=== PATIENT | male | born 1940 | race Caucasian/White ===

== ENCOUNTER → 2023-09-19 15:30 | Outpatient (REF) | payer OTHER, SELFPAY | LOC: HWRAD 15:30 | PROVIDERS: ATTENDING PHYSICIAN Surgery; FAMILY PHYSICIAN Internal Medicine | DX: N50.89 Other specified disorders of the male genital organs (principal) | CPT/HCPCS: 76870; 93976 ==

== ENCOUNTER → 2023-11-23 08:17 | Outpatient (REF) | payer OTHER, SELFPAY ==
[2023-11-23 09:39] LABS: ALT (SGPT) 16 U/L (0-50); AST (SGOT) 28 U/L (17-59); Albumin 4.2 g/dl (3.5-5.0); Alkaline Phosphatase 52 U/L (38-126); Blood Urea Nitrogen 12 mg/dl (9-20); Calcium 9.4 mg/dl (8.4-10.2); Carbon Dioxide 25 mmol/L (22-30); Chloride 105 mmol/L (98-107); Glucose 94 mg/dl (70-99); HDL Cholesterol 77 mg/dl; LDL Cholesterol, Calculated 94 mg/dl; Potassium 4.4 mmol/L (3.5-5.1); Sodium 139 mmol/L (135-145); Total Cholesterol 201 mg/dl (50-199); Total Protein 6.8 g/dl (6.3-8.2); Triglyceride 154 mg/dl (10-149); Very Low Density Lipoprotein 30 mg/dl (0-30); eGFR > 60.00
[2023-11-23 09:45] LABS: % Basophils 0.9 % (0-2); % Eosinophils 5.2 % (0-6); % Immature Granulocytes 0.3 % (0-0.5); % Lymphocytes 35.5 % (20.5-51.1); % Monocytes 7.3 % (1.7-9.3); % Neutrophils 50.8 % (42.2-75.2); Absolute Eosinophils 0.2 10^3/uL (0-0.7); Absolute Lymphocytes 1.2 10^3/uL (1.2-3.4); Absolute Monocytes 0.2 10^3/uL (0.1-0.6); Absolute Neutrophils 1.7 10^3/uL (1.4-6.5); Hematocrit 41.8 % (39.0-52.0); Hemoglobin 13.7 g/dL (13.0-18.0); Mean Corp Hgb Conc. 32.8 g/dL (33.0-37.0); Mean Corpuscular Hgb 30.2 pg (27.0-31.0); Mean Corpuscular Volume 92.1 fL (80.0-94.0); Mean Platelet Volume 10.4 fL (7.4-10.4); Nucleated Red Blood Cells % 0 % (-); Platelet Count 142 10^3/uL (130-400); Red Blood Cell Count 4.54 10^6/uL (4.70-6.10); Red Cell Dist. Width 13.3 % (11.5-14.5); White Blood Cell Count 3.3 10^3/uL (4.8-10.8)
[2023-11-24 21:46] LABS: PSA Total 0.9 ng/mL (0.0-4.0)
[2023-11-25 16:25] LABS: Lyme Antibody Screen, EIA Negative (Negative)
== END ==
LOC: REG 08:17
PROVIDERS: ATTENDING PHYSICIAN Nurse Practitioner; FAMILY PHYSICIAN Internal Medicine
DX: R53.83 Other fatigue (principal); Z00.00 Encounter for general adult medical examination without abnormal findings; Z12.5 Encounter for screening for malignant neoplasm of prostate; E78.5 Hyperlipidemia, unspecified; W57.XXXA Bitten or stung by nonvenomous insect and other nonvenomous arthropods, initial encounter
CPT/HCPCS: 36415; 80053; 80061; 84153; 84154; 84443; 85025; 86618

== ENCOUNTER 2024-03-26 03:55 | Inpatient (IN) | payer OTHER, SELFPAY ==
[2024-03-26] VITALS (14 sets, daily range): BP systolic 107–149; BP diastolic 78–99; PULSE 72–111; BMI 27.9; BMI 27.4
[2024-03-26 02:22] LABS: % Basophils 0.9 % (0-2); % Eosinophils 3.6 % (0-6); % Immature Granulocytes 0.4 % (0-0.5); % Lymphocytes 35.4 % (20.5-51.1); % Monocytes 7.4 % (1.7-9.3); % Neutrophils 52.3 % (42.2-75.2); Absolute Basophils 0.1 10^3/uL (0-0.2); Absolute Eosinophils 0.2 10^3/uL (0-0.7); Absolute Monocytes 0.4 10^3/uL (0.1-0.6); Absolute Neutrophils 2.9 10^3/uL (1.4-6.5); Hematocrit 32.6 % (39.0-52.0); Hemoglobin 11.3 g/dL (13.0-18.0); Mean Corp Hgb Conc. 34.7 g/dL (33.0-37.0); Mean Corpuscular Hgb 30.6 pg (27.0-31.0); Mean Corpuscular Volume 88.3 fL (80.0-94.0); Mean Platelet Volume 10.3 fL (7.4-10.4); Nucleated Red Blood Cells % 0 % (-); Platelet Count 165 10^3/uL (130-400); Red Blood Cell Count 3.69 10^6/uL (4.70-6.10); Red Cell Dist. Width 12.8 % (11.5-14.5); White Blood Cell Count 5.5 10^3/uL (4.8-10.8)
--- NOTE | 2024-03-26 02:22 | ED.GENMED ---
History of Present Illness
General
Chief Complaint: Rectal Bleeding
Source: patient
Exam Limitations: none
Time Seen by Provider: 03/26/24 02:02
History of Present Illness
History of Present Illness:
This is a 83 year old male that comes in with c/o rectal bleeding. States that at 10pm on Saturday night he had a BM and he noticed that there was a little blood there. States that this was unusual that he had a BM at night as he normal goes in the
morning. States that it was bright red bleeding. Then all day Saturday he was having bloody stool about every 2 hours. States that he didn't eat all day. States that he he was having these little diverticulitis balls of blood that would come out.
States that tonight at 9pm he started to feel week and the bleeding was more frequently so he thought he better come in. States that he did have diarrhea. Denies any fever, chills, chest pain, SOB, abd pain, nausea, vomiting, headache, dizziness,
urinary burning.
Past History
Past History
ED Past Medical History: Asthma, CAD, Cancer (Skin CA with Mohs procedure), COPD, Hypercholesterolemia and Other (angina, Neuropathy, PNA, Diverticulitis, Hiatal hernia, IBS, Polyps)
ED Past Surgical History: Cardiac (Stent) and Other (Hernia repair Bilateral, cataracts, )
Social History
Tobacco: Former smoker
Alcohol: Daily (Beer 2-3 cans)
Drug: None
Personal:
Living: with family
Employment: Retired
Review of Systems
Review of Systems
All Other Systems: ROS reviewed and negative except as documented in HPI and ROS
Constitutional: Reports no symptoms; Denies fever or chills
EENT: Reports no symptoms
Respiratory: Reports no symptoms; Denies cough or trouble breathing
Cardiac: Reports no symptoms; Denies chest pain
ABD/GI: Reports diarrhea and bloody stools; Denies abdominal pain, nausea or vomiting
: Denies dysuria, frequency or urgency
Musculoskeletal: Reports no symptoms
Skin: Reports no symptoms
Neurological: Reports weakness; Denies dizzy or headache
Psychiatric: Reports no symptoms
Phy Exam
General Physical Exam
General Presentation: well appearing and no apparent distress
General age: appears stated age
General Skin: warm and dry
General Habitus: elderly
General Mental: alert
General Hydration: appears well hydrated
ENT Exam
ENT Exam: TM's normal, pharynx normal and neck supple
Eye Exam
Eye Exam: EOMI
Cardiovascular Exam
Cardiovascular Exam: regular rate/rhythm, no edema and normal peripheral pulses
Pulmonary Exam
Pulmonary Exam: lungs clear, no respiratory distress, no rales, chest non tender, no crackles, no rhonchi, no wheezing and no cough
Gastrointestinal Exam
Gastrointestinal Exam: normal bowel sounds, non tender, soft, no organomegaly, no pulsatile mass, non distended and other (Bright red rectal bleeding Hem positive)
Musculoskeletal Exam
Musculoskeletal Exam: full ROM and no edema
Skin Exam
Skin Exam: normal color, warm/dry, no rash and no petechia
Psychiatric Exam
Psychiatric Exam: normal mood/affect
Course
Orders/Labs/Results
Orders:
Orders
03/26/24 02:12
Cardiac Monitoring- Treatment ONCE
IV Insert/Care/Rem.- Treatment PRN
O2 Therapy [RESP] Urgent
Titrate/Wean O2 to maintain O2 sat greater than (%): 93
Special Instructions: MAINTAIN CONTINOUS O2 SATS > OR = 93%
Pulse Ox/spot Check [RESP] Urgent
Quantity: 1
Special Instructions: ON ROOM AIR
03/26/24 02:15
Type+Screen Urgent
Complete Blood Count/With Diff Urgent
Comprehensive Metabolic Panel Urgent
PTT Urgent
Prothrombin Time Urgent
03/26/24 02:22
Electrocardiogram (*1) Urgent
Reason for Study: Other
Other Reason for Exam: rECTAL BLEEDING
EKG- Treatment ONCE
Abnormal Lab Results
03/26/24
02:15
RBC 3.69 L 10^6/uL
(4.70-6.10)
Hgb 11.3 L g/dL
(13.0-18.0)
Hct 32.6 L %
(39.0-52.0)
Glucose 118 H mg/dl
(70-99)
Total Bilirubin 1.5 H mg/dl
(0.2-1.3)
Total Protein 6.0 L g/dl
(6.3-8.2)
03/26/24 02:15
03/26/24 02:15
H/H low ( prior H/H 13.7/ 41.8). Glucose nonfasting. Total eyad slightly elevated. Total protein slighly low. PT 13.1 with INR 0.99, PTT 27. 1
Vital Signs
Initial and Last Documented VS:
Initial Vital Signs
Temp Pulse Resp BP Pulse Ox
98.9 F 94 20 107/78 100
03/26/24 01:57 03/26/24 01:57 03/26/24 01:57 03/26/24 01:57 03/26/24 01:57
Last Documented Vital Signs
Temp Pulse Resp BP Pulse Ox
98.9 F 94 20 107/78 100
03/26/24 01:57 03/26/24 01:57 03/26/24 01:57 03/26/24 01:57 03/26/24 01:57
MDM/Problems Addressed
Differential Diagnosis Includes:
Rectal bleeding. Colitis,
MDM/Problems Addressed:
This is a 83 year old male that comes in with c/o rectal bleeding which started on Saturday night. States that he was bleeding all day on Saturday and that tonight he started to feel weak.
Will get labs. and admit. Hospitalist notified.
Chronic conditions affecting care:
IBS, Diverticulitis,
Acute Exacerbation and/or Progression of Chronic Illness:
IBS, Diverticulitis,
*Pulse Oximetry
Patient hypoxic: no
*EKG
Interpreted by ED Provider?: Yes
Heart Rate: 82
Rate: normal
Rhythm: sinus
[place]: left axis deviation
Interval: first degree heart block
QRS Pattern: normal QRS
Ischemia: no ischemia
*Chemical Processing Supervisor Interpretation
Rate: normal
Heart Rate: 94
Rhythm: sinus
*Critical Care Note
Total Time (30-74mins, 75-104mins- exclusive of procedures): Not Applicable
ED Attending Note
-
Portions of this chart may have been created with voice recognition software.� Occasional wrong word or��sound alike� substitutions may have occurred due to the inherent limitations of voice recognition software.
Discharge Plan
Departure
Patient Disposition: Admit
Date of Disposition: 03/26/24
Time of Disposition: 02:52
Admit to: Telemetry
Presentation/result/management discussed w/ accepting MD/DO: Hospitalist
Patient with high blood pressure during this ER visit?: No
Condition: Good
Covid-19: Not Applicable
Discharge Problem:
Bright red rectal bleeding
Prescriptions:
No Action
polyethylene glycol 3350 [Miralax] 17 gram Powder In Packet
17 g PO DAILY PRN (Reason: constipation)
ascorbic acid (vitamin C) [Vitamin C] 500 mg Tablet
500 - 1,500 mg PO DAILY
zinc 50 mg Tablet
50 mg PO DAILY PRN (Reason: prn)
Patient Comments:
pt takes it only when he will be around a lot of people.
cholecalciferol (vitamin D3) [Vitamin D3] 25 mcg (1,000 unit) Tablet
25 mcg PO DAILY PRN (Reason: prn)
aspirin 81 mg Capsule
81 mg PO HS
guar gum Packet
1 tbsp PO DAILY
magnesium citrate 4 gram Packet
100 mg PO DAILY PRN (Reason: prn)
apple cider vinegar
2 oz PO DAILY
acetaminophen [Tylenol Extra Strength] 500 mg tablet
1,000 mg PO Q6HPRN PRN (Reason: mild pain) Qty: 1 0RF
Interventions
Interventions:
*Risk Screen - Suicide Last Done: 03/26/24 02:26
*General Assessment Last Done: 03/26/24 02:27
*Neglect/Abuse Screening Last Done: 03/26/24 02:26
ED- Fall Risk Assessment Last Done: 03/26/24 02:26
*ED COVID-19 Vaccine History Last Done: 03/26/24 01:57
MC-Wkszpp-Psrqlodpae Assessment Last Done: 03/26/24 02:27
ED- Cardiac Assessment Last Done: 03/26/24 02:27
ED- Pulmonary Assessment Last Done: 03/26/24 02:27
Discharge Date and Time
Print Language: COLOM[place]
[2024-03-26 02:32] LABS: INR 0.99; PT 13.1 Sec (11.4-14.6)
[2024-03-26 02:33] LABS: APTT 27.1 Sec (23.4-35.0)
[2024-03-26 02:38] LABS: ALT (SGPT) 13 U/L (0-50); AST (SGOT) 20 U/L (17-59); Albumin 3.7 g/dl (3.5-5.0); Alkaline Phosphatase 50 U/L (38-126); Blood Urea Nitrogen 16 mg/dl (9-20); Carbon Dioxide 23 mmol/L (22-30); Chloride 105 mmol/L (98-107); Estimated Creatinine Clearance 83 ml/min; Glucose 118 mg/dl (70-99); Potassium 3.9 mmol/L (3.5-5.1); Sodium 136 mmol/L (135-145); Total Bilirubin 1.5 mg/dl (0.2-1.3); eGFR > 60.00
--- NOTE | 2024-03-26 03:07 | HPS.HSE ---
Family Physician
-
Family Physician:
Chief Complaint
-
Blood per rectum
History of Present Illness
HPI
83F IBS, remote HX Diverticulitis in 1997, CAD, on ASA seen at ER for evaluation of RECTAL BLEEDING.
- acute onset on Saturday night
- noted small amount of bright red blood with BM
- Over the time , passage passage of blood mixed with stool almost q2hrs
- last dose of ASA on Saturday
- HX Diverticulosis
ROS
Denies any fever, chills, chest pain, SOB, abd pain, nausea, vomiting, headache, dizziness, urinary burning.
Medical History
Past Medical History
Past Medical History: Reports Other
Additional Past Medical History:
Asthma,
CAD, Angina
Skin CA with Mohs procedure
COPD
Hypercholesterolemia
Neuropathy
PNA
Diverticulitis
Hiatal hernia
IBS
Polyps
Past Surgical History: Reports Other
Additional Past Surgical History:
Cardiac stent
B/L Hernia repair
Cataracts
Social History
Tobacco: Former Smoker
Alcohol: Daily (2-3 cans )
Drug: None
Personal:
Living: With Family
Employment: Retired
Family History
Family History: Not pertinent
Allergies / Home Medications
Allergies reflects when Allergies were last updated in [employer].
Home Medications with original date entered in [employer]
Allergy/Medication List:
Allergies
Allergy/AdvReac Type Severity Reaction Status Date / Time
Cephalosporins Allergy Unknown Verified 03/26/24 01:56
penicillin G Allergy Rash Verified 03/26/24 01:56
CHILD
Penicillins Allergy Rash Verified 03/26/24 01:56
CHILD
Home Medications
ascorbic acid (vitamin C) 500 mg tablet (Vitamin C) 500 - 1,500 mg PO DAILY 08/17/22
aspirin 81 mg capsule 81 mg PO HS 08/17/22
cholecalciferol (vitamin D3) 25 mcg (1,000 unit) tablet (Vitamin D3) 25 mcg PO DAILY PRN prn 08/17/22
guar gum 1 tbsp PO DAILY 08/17/22
polyethylene glycol 3350 17 gram oral powder packet (Miralax) 17 g PO DAILY PRN constipation 08/17/22
zinc 50 mg tablet 50 mg PO DAILY PRN prn 08/17/22
apple cider vinegar 2 oz PO DAILY 06/24/23
magnesium citrate 4 gram oral packet 100 mg PO DAILY PRN prn 06/24/23
acetaminophen 500 mg tablet (Tylenol Extra Strength) 1,000 mg (2 x 500 mg) PO Q6HPRN PRN mild pain #1 tab 06/28/23
Review of Systems
-
Constitutional: Reports No Symptoms
EENT: Reports No Symptoms
Respiratory: Reports No Symptoms
Cardiac: Reports No Symptoms
Abdomen/GI: Reports See HPI and Bloody Stools
: Reports No Symptoms
Musculoskeletal: Reports No Symptoms
Skin: Reports No Symptoms
Neurological: Reports No Symptoms
Endocrine: Reports No Symptoms
Hematologic/Lymphatic: Reports No Symptoms
Psych: Reports No Symptoms
Physical Exam
Vital Signs
Vital Signs
Temp Pulse Resp BP Pulse Ox
98.9 F 86 17 116/88 96
03/26/24 01:57 03/26/24 03:00 03/26/24 03:00 03/26/24 03:00 03/26/24 03:00
Physical Exam
General: Well Developed, Well Nourished, No Apparent Distress and Conversant; No Pain
HEENT: NormoCephalic, Anicteric and Moist mucous membranes
Respiratory: Clear; No Wheezes, Rales or Rhonchi
Cardiac: S1/S2, Regular Rhythm and Murmur (soft short SM at [place] )
GI: Soft, Non Tender, Non Distended and Normal Bowel Sounds
Rectal: Red and Hem Positive
Musculoskeletal: No Edema
Skin: Warm and Dry
Neuro: AO x 3
Psych: Calm
Laboratory Results
-
03/26/24 02:15
03/26/24 02:15
Laboratory Results
PT 13.1 Sec (11.4-14.6) 03/26/24 02:15
INR 0.99 03/26/24 02:15
APTT 27.1 Sec (23.4-35.0) 03/26/24 02:15
Total Bilirubin 1.5 mg/dl (0.2-1.3) H 03/26/24 02:15
AST 20 U/L (17-59) 03/26/24 02:15
ALT 13 U/L (0-50) 03/26/24 02:15
Alkaline Phosphatase 50 U/L (38-126) 03/26/24 02:15
Data Reviewed
-
Lab Data: Labs Reviewed by me
Old Records: Reviewed
Impression/Plan
-
Reviewed VS: BP 107/78
Data
Hgb 11.3 baseline 13- 14
TB 1.5
NO PRIOR hospitalist admission:
ASSESSMENT & PLAN
Acute painless BRBPR vs acute hematochezia LGIB : DDX: Diverticular bleed, AVM, less likely acute ischemic colitis
Relatively hypotensive
Associated with ACBLA due to LGIB loss
last dose of ASA on Saturday
HX Diverticulosis and remote HX Diverticulitis 1997
- T & S
- Blood consented
- Trend Hgb
- NPO and IVF
- Held ASA for now
- IV PPI daily
- If become cont bleeding , to CTA
- GI consult
Known HX: Pending Rx reconciliation
CAD with sttent, HX Angina: held ASA
Skin CA with Mohs procedure
COPD
Hypercholesterolemia
Neuropathy
PNA
Diverticulitis
Hiatal hernia
IBS
Polyps
DVT Px: SCD
Code: Full
IP TLM
[2024-03-26] MEDS: NSS 1000 IV ×2 (03:36→14:29)
--- NOTE | 2024-03-26 04:05 | PTCARENOTE ---
pt admitted to [facility]. AAOx3. VSS. Pt had a large loose bloody stool. Pt is asymptomatic. Abd round. +BS. pt appears comfortable in bed and call hill within reach.
[2024-03-26] MEDS: NSS (PRESERVATIVE FREE) IV (07:54)
[2024-03-26] MEDS: PROTONIX IV IV (07:54)
--- NOTE | 2024-03-26 08:52 | CON.GI ---
Addendum entered and electronically signed by Olive Gay MD 03/26/24 12:35:
I saw and examined the patient.
The resident's note was reviewed and I agree with the note.
Comment: 83-year-old male with history of COPD, asthma, remote history of diverticulitis, previous history of diverticular bleed 2 years ago presenting with painless GI bleeding starting Saturday night. Multiple episodes almost every 2 hours, last
episode was about an hour ago. Had 3 bowel movements since this morning, slightly smaller in volume now. Reports having similar episode 2 years ago, had a colonoscopy which showed diverticulosis and this was done with [facility]. Denies any abdominal
pain, nausea or vomiting. No heartburn or trouble swallowing. History of chronic constipation, takes Benefiber daily and magnesium citrate 4 times a week. No NSAID use. No unintentional weight loss. No family history of colon cancer. History
of polyps 10 years ago but not on the last colonoscopy.
Currently hemoglobin did trend down but stable. Hemodynamically stable.
-Painless GI bleeding, hemodynamically stable
Likely diverticular, seems to be slowing down a bit
Continue to monitor H&H and transfuse as needed.
Currently on clear liquid diet without reds.
If overt active bleeding, will get a CT angiogram.
If persistent bleeding, will need to go ahead with colonoscopy.
Getting records from [facility] regarding previous colonoscopy
Will monitor closely
Original Note:
Documented by User: Marguerite Bryson MD, Resident 03/26/24 10:34
Medical History
Chief Complaint / HPI
Chief Complaint: Rectal Bleeding
History of Present Illness:
Patient is an 83 year old male with PMH of diverticulitis (1997), diverticulosis, IBS (constipation-dominant) and CAD (s/p stent) that presented to ED with bright red rectal bleeding. He started feeling weak on Saturday afternoon while playing golf.
After getting home, he had a loose BM at 10pm and noticed bright red blood on the toilet paper and mixed with stool. He had frequent bowel movements on Saturday about every 2 hours which he mentions looked like small soft balls mixed with blood.
He denies any fever, chills, chest pain, SOB, abd pain, nausea, vomiting, dizziness, lightheadedness. The last dose of ASA was on Saturday night.
He had a similar episode of rectal bleeding 2 years ago and his Hgb had dropped to 10. He was admitted to [facility] and had a colonoscopy done at that time. Last endoscopy was in 2009 which pt states was normal.
Past Medical History
Past Medical History: Asthma, CAD, Cancer (Skin CA with Mohs procedure), COPD, Hypercholesterolemia and Other (IBS, diverticulitis, diverticulosis, colon polyps, inguinal hernia)
Past Surgical History: Other (Bilateral inguinal hernia repair, cataract, stent)
Social History
Tobacco: Former Smoker
Alcohol: Daily
Drug: None
Personal:
Living: With Family
Employment: Retired
Allergies / Home Medications
Allergy/AdvReac Type Severity Reaction Status Date / Time
Cephalosporins Allergy Unknown Verified 03/26/24 01:56
penicillin G Allergy Rash Verified 03/26/24 01:56
CHILD
Penicillins Allergy Rash Verified 03/26/24 01:56
CHILD
�Medication �Instructions �Recorded
ascorbic acid (vitamin C) 500 mg 500 - 1,500 mg PO DAILY 08/17/22
tablet (Vitamin C)
aspirin 81 mg capsule 81 mg PO HS 08/17/22
cholecalciferol (vitamin D3) 25 25 mcg PO DAILY PRN prn 08/17/22
mcg (1,000 unit) tablet (Vitamin
D3)
guar gum 1 tbsp PO DAILY 08/17/22
polyethylene glycol 3350 17 gram 17 g PO DAILY PRN constipation 08/17/22
oral powder packet (Miralax)
zinc 50 mg tablet 50 mg PO DAILY PRN prn 08/17/22
apple cider vinegar 2 oz PO DAILY 06/24/23
magnesium citrate 4 gram oral 100 mg PO DAILY PRN prn 06/24/23
packet
acetaminophen 500 mg tablet 1,000 mg (2 x 500 mg) PO Q6HPRN 06/28/23
(Tylenol Extra Strength) PRN mild pain #1 tab
Review of Systems
-
History Source: Patient
All other systems: A 12 pt ROS was Negative except as stated above in HPI
Constitutional: Reports Fatigue
Abdomen/GI: Reports Bloody Stools; Denies Abdominal Pain, Nausea, Vomiting or Anorexia
Neurological: Denies Dizzy
Vital Signs
Temp Pulse Resp BP Pulse Ox
97.7 F 102 17 130/84 96
03/26/24 07:00 03/26/24 07:00 03/26/24 07:00 03/26/24 07:00 03/26/24 07:00
Physical Exam
Exam
General: Well Developed and No Apparent Distress
HEENT: Normocephalic, Anicteric and Moist Mucous Membranes
Respiratory: Clear
Cardiac: S1/S2 and Regular Rhythm
GI: Soft, Non Tender, Non Distended and Normal Bowel Sounds
Skin: Warm and Dry
Neuro: Awake, Alert, Oriented and AO x 3
Results
WBC 5.5 10^3/uL (4.8-10.8) 03/26/24 02:15
Hgb Cancelled 03/26/24 22:12
Hct Cancelled 03/26/24 22:12
MCV 88.3 fL (80.0-94.0) 03/26/24 02:15
Plt Count 165 10^3/uL (130-400) 03/26/24 02:15
Absolute Neuts (auto) 2.9 10^3/uL (1.4-6.5) 03/26/24 02:15
PT 13.1 Sec (11.4-14.6) 03/26/24 02:15
INR 0.99 03/26/24 02:15
APTT 27.1 Sec (23.4-35.0) 03/26/24 02:15
Sodium 136 mmol/L (135-145) 03/26/24 02:15
Potassium 3.9 mmol/L (3.5-5.1) 03/26/24 02:15
Chloride 105 mmol/L (98-107) 03/26/24 02:15
Carbon Dioxide 23 mmol/L (22-30) 03/26/24 02:15
BUN 16 mg/dl (9-20) 03/26/24 02:15
Creatinine 0.7 mg/dL (0.7-1.3) 03/26/24 02:15
Calcium 9.0 mg/dl (8.4-10.2) 03/26/24 02:15
Total Bilirubin 1.5 mg/dl (0.2-1.3) H 03/26/24 02:15
AST 20 U/L (17-59) 03/26/24 02:15
ALT 13 U/L (0-50) 03/26/24 02:15
Alkaline Phosphatase 50 U/L (38-126) 03/26/24 02:15
Diagnostic Image Results:
Prior GI Procedures:
EGD:
Colonoscopy:
Assessment / Plan
-
Patient is an 83 year old male with PMH of diverticulitis (1997), diverticulosis, IBS (constipation-dominant) and CAD (s/p stent) that presented to ED with bright red rectal bleeding. Patient is hemodynamically stable. Hgb this am is 10 (dropped
from 11.3). Last BM was at 5am this morning which was loose stool mixed with blood. BUN normal.
#Recommendations:
- Continue to monitor h/h and v/s for any acute signs of worsening
- Consider blood tx if Hgb drops to 7
- Possible colonoscopy tomorrow
- Advance diet to clear liquids
-
-
Thank you for consultation and allowing me to participate in the patient's care. Please call the instrumentation tech GI physician during the after hours with any questions or concerns.

Documented by User: Olive Gay MD 03/26/24 12:26
Assessment / Plan
-
Patient is an 83 year old male with PMH of diverticulitis (1997), diverticulosis, IBS (constipation-dominant) and CAD (s/p stent) that presented to ED with bright red rectal bleeding. Patient is hemodynamically stable. Hgb this am is 10 (dropped
from 11.3). Last BM was at 5am this morning which was loose stool mixed with blood. BUN normal.
#Recommendations:
- Continue to monitor h/h and v/s for any acute signs of worsening
- Consider blood tx if Hgb drops to 7
- Advance diet to clear liquids
- If overt bleeding, CTA and if bleeding persists, consider colonoscopy
[2024-03-26 09:01] LABS: ALT (SGPT) 11 U/L (0-50); AST (SGOT) 18 U/L (17-59); Albumin 3.2 g/dl (3.5-5.0); Alkaline Phosphatase 45 U/L (38-126); Blood Urea Nitrogen 16 mg/dl (9-20); Calcium 8.5 mg/dl (8.4-10.2); Carbon Dioxide 24 mmol/L (22-30); Chloride 108 mmol/L (98-107); Estimated Creatinine Clearance 83 ml/min; Glucose 104 mg/dl (70-99); Potassium 4.2 mmol/L (3.5-5.1); Sodium 135 mmol/L (135-145); Total Bilirubin 1.2 mg/dl (0.2-1.3); Total Protein 5.3 g/dl (6.3-8.2); eGFR > 60.00
--- NOTE | 2024-03-26 13:12 | W.PN.UPDATE ---
Update Note
Progress Note Update
Non billable note
I saw and evaluated the patient. I reviewed the resident�s note and agree with findings and plan as documented in the resident�s note.
GI bleed - presumed lower and diverticular in nature . Have previous history of diverticular bleed/colonoscopy in the past. Monitor hemoglobin and for bleeding. Transfuse if hemoglobin less than 7. Discussed with GI in agreement,.
[2024-03-26 13:22] LABS: Hematocrit 26.6 % (39.0-52.0); Hemoglobin 9.3 g/dL (13.0-18.0)
--- NOTE | 2024-03-26 15:50 | CM ---
Met with pt at bedside
Pt lives in a split level home with his - no steps to enter; 12 steps to bedroom
Independent, driving
DME - rolling walker - not in use
SNF/HH - no hx
Has ride at d/c
PCP - DR Nichole Mendez
Pharm - [facility]
CM will follow for d/c needs
Plan - anticipate home no needs
--- NOTE | 2024-03-26 17:04 | W.PN.HOSP.TC ---
Addendum entered and electronically signed by Bolivar Pritchett MD, Resident 03/27/24 15:37:
CAD with stent with history of Angina
-ASA held since first episode of blood bowel movement
-Continue holding ASA
-GI bleed is not enhanced by aspirin but it is due to diverticulosis
Original Note:
Today's Communication/Plan
-
Patient will continue on IVF and Protonix. He will continue to be monitored and if his condition improves, will be able to leave tomorrow.
Assessment / Plan
Assessment / Plan
Assessment: 83 year old male comes to the hospital with a history of diverticulitis, IBS COPD, and asthma, with a previous history of diverticular bleed 2 years ago presented with painless GI bleeding that started on 03/24. Patient is currently still
having bloody bowel movements with multiple episodes occurring throughout the day.
Painless GI bleeding suspected due to previous history of Diverticulosis
-Hemoglobin has dropped from 11.3-> 10.0 -> 9.3
-Patient not taking baby aspirin since symptoms started
-Patient on liquid diet and given IVF and Protonix
-GI consulted, input appreciated
-As per GI, Continue monitoring Hb and transfuse if Hb drops to 7
-If overt bleeding, consider CTA and if bleeding continues would consider colonoscopy as well
CAD with stent with history of Angina
-ASA held since first episode of blood bowel movement
-Continue holding ASA
COPD and Asthma history
-Patient not taking any medication at home
-Monitor and give medications as needed
Hypercholesterolemia
-Patient not on any medications
-Follow up in outpatient setting
Anticipated Discharge: Within 24 hours
Subjective/Interval History
-
Date of Service: March 26, 2024
Patient was feeling well and reported no adverse events over night. Says he has not had any abdominal pain or tenderness but has had multiple bloody bowel movements since admission.
Objective Data
-
Labs:
Laboratory Results
03/26/24 03/26/24 03/26/24
04:12 07:38 10:12
Hgb Cancelled 10.0 L Cancelled
Hct Cancelled 29.0 L Cancelled
Sodium 135
Potassium 4.2
Chloride 108 H
Carbon Dioxide 24
BUN 16
Creatinine 0.7
Glucose 104 H
Calcium 8.5
Total Bilirubin 1.2
AST 18
ALT 11
Alkaline Phosphatase 45
03/26/24 03/26/24 03/26/24
13:10 16:12 19:30
Hgb 9.3 L Cancelled Pending
Hct 26.6 L Cancelled Pending
Sodium
Potassium
Chloride
Carbon Dioxide
BUN
Creatinine
Glucose
Calcium
Total Bilirubin
AST
ALT
Alkaline Phosphatase
03/26/24
22:12
Hgb Cancelled
Hct Cancelled
Sodium
Potassium
Chloride
Carbon Dioxide
BUN
Creatinine
Glucose
Calcium
Total Bilirubin
AST
ALT
Alkaline Phosphatase
Vital Signs:
Vital Signs
Temp Pulse Resp BP Pulse Ox
98.5 F 76 17 134/93 97
03/26/24 15:40 03/26/24 15:40 03/26/24 15:40 03/26/24 15:40 03/26/24 15:40
I&O
03/25/24 03/26/24 03/27/24
06:59 06:59 06:59
Intake Total 400 / 400
Output Total 650 / 650
Balance -250 / -250
Review of Systems
-
History Source: Patient
Constitutional: Denies Fever, Weight Loss or Fatigue
Respiratory: Denies Cough or Trouble Breathing
Cardiac: Denies Chest Pain, Diaphoresis, Palpitations or Syncope
Abdomen/GI: Reports Diarrhea and Bloody Stools (Bloody clots in the stool); Denies Abdominal Pain, Nausea or Vomiting
Physical Exam
-
General: Well Developed, Well Nourished, No Apparent Distress and Comfortable
Respiratory: Clear to Auscultation and Non Labored Respirations
Cardiac: Regular Rhythm and S1/S2
GI: Soft, Nontender, Distended and Other (Hyperactive bowel sounds)
Skin: Warm and Dry
Neuro: Awake, Alert, Oriented and AO x 3
Psych: Calm
Data Reviewed
-
Labs: Labs Reviewed by me, Discussed with Physician and Discussed with Patient
[2024-03-26 19:47] LABS: Hematocrit 25.5 % (39.0-52.0); Hemoglobin 8.9 g/dL (13.0-18.0)
[2024-03-26 22:59] LABS: Hematocrit 25.5 % (39.0-52.0); Hemoglobin 8.7 g/dL (13.0-18.0)
[2024-03-27] MEDS: NSS 1000 IV ×3 (01:23→21:34)
[2024-03-27 03:20] VITALS: BP 137/84
[2024-03-27 07:00] VITALS: BP 132/90
[2024-03-27] MEDS: PROTONIX IV 40 MG IV (08:02)
[2024-03-27] MEDS: NSS (PRESERVATIVE FREE) 10 ML IV (08:03)
--- NOTE | 2024-03-27 08:09 | W.PN.GI.CBS2 ---
Today's Communication / Plan
-
Stat CTA
Assessment / Plan
-
Patient is an 83 year old male with PMH of diverticulitis (1997), diverticulosis, IBS (constipation-dominant) and CAD (s/p stent) that presented to ED with bright red rectal bleeding. Patient is hemodynamically stable. Hgb is continuously dropping
(currently standing at 8.7). Last BM was at 7:30 this am which was bloody.
#Recommendations:
- Stat CTA ordered
- Continue to monitor h/h and v/s for any acute signs of worsening
- Consider blood tx if Hgb drops to 7
Subjective
Subjective
Date of Service: March 27, 2024
Patient complains of weakness. Is still having active BRBPR. Reports 12 oz of bleeding this a.m with his BM. No CP/SOB. No lightheadedness/dizzines.
Objective
Data Reviewed
Laboratory Data:
Laboratory Results
03/26/24 07:38
Laboratory Results
PT 13.1 Sec (11.4-14.6) 03/26/24 02:15
INR 0.99 03/26/24 02:15
APTT 27.1 Sec (23.4-35.0) 03/26/24 02:15
Total Bilirubin 1.2 mg/dl (0.2-1.3) 03/26/24 07:38
AST 18 U/L (17-59) 03/26/24 07:38
ALT 11 U/L (0-50) 03/26/24 07:38
Alkaline Phosphatase 45 U/L (38-126) 03/26/24 07:38
Vital Signs and I&O:
Vital Signs
Temp Pulse Resp BP Pulse Ox
98.6 F 83 16 137/84 97
03/27/24 03:20 03/27/24 03:20 03/27/24 03:20 03/27/24 03:20 03/27/24 03:20
I&O
03/26/24 03/27/24 03/28/24
06:59 06:59 06:59
Intake Total 400 / 400 2460 / 2460
Output Total 650 / 650 1490 / 1490
Balance -250 / -250 970 / 970
Physical Exam
Physical Exam
HEENT: Anicteric
Cardiology: Normal Sinus Rhythm, S1 and S2
Pulmonary: Clear
GI: Soft, Non Distended and Non Tender
Extremities: No Edema
[2024-03-27 08:17] LABS: Hematocrit 23.1 % (39.0-52.0)
--- NOTE | 2024-03-27 09:59 | PN.CDI ---
CDI
- -
CDI:
Physician Documentation Request
Admit Date: 03/26/24 03:55
Dear Doctor Shreyas,
Please review the following and provide your response in the progress notes.
Clinical Indicators:
PN, 03/26
#Painless GI bleeding suspected due to previous history of Diverticulosis
#...-Hemoglobin has dropped from 11.3-> 10.0 -> 9.3
#...-Patient not taking baby aspirin since symptoms started
#CAD with stent with history of Angina
#...-ASA held since first episode of blood bowel movement
#...-Continue holding ASA
Please clarify the relationship, if any, between these conditions:
Yes, GI bleed is enhanced by/contributed to/associated with/due to aspirin.
No, GI bleed is not enhanced by/contributed to/associated with/due to aspirin but it is due to ___. (Please specify)
Other (please specify)
Use of terms such as suspected, likely, concern for, or probable (associated with a specific diagnosis that is being evaluated, monitored, or treated as if it exists) are acceptable and can be coded in the inpatient setting, when documented at the
time of discharge.
Thank you,
Monique Burns RN BSN CCDS
CDI Specialist
please contact via tiger text
Please use your independent medical judgment in providing your response.
[2024-03-27 11:00] VITALS: BP 149/85
--- NOTE | 2024-03-27 11:18 | W.PN.HOSP.TC ---
Today's Communication/Plan
-
Trend serial H&H's
Transfuse blood if Hb less than 7.
In case of hypovolemic shock secondary to blood loss consider repeating CT angiogram.
Continue IV fluids and liquid diet.
Assessment / Plan
Assessment / Plan
Assessment: 83-year-old male with PMHx significant for history of diverticulitis-diverticular bleed (in 2021), IBS COPD, and asthma, presented with painless GI bleeding-admitted for evaluation of acute GI bleed
Plan-
GI bleed-
Ongoing GI bleed, suspected secondary to diverticulosis (given his past medical history)
His colonoscopy results from 2021 reviewed-evidence for severe sigmoid diverticulosis and grade 1 internal hemorrhoids.
Trending H&H-dropped from 11.3 on 03/24-8 on 03/27.
Continue to trend H&H closely, transfuse blood if Hb<7.
Liquid diet, IVF, Protonix. Patient's home aspirin dosing is on hold continue holding blood thinners.
GI on board, recommended CT angiogram in the morning in the setting of overt GI bleeding.
no evidence of active bleeding on CT angiogram of abdomen and pelvis.
Continue to monitor patient for ongoing active rectal bleeding symptoms.
CAD s/p PCI (> 1 year ago)
Patient on aspirin, currently aspirin on hold.
COPD/asthma-
Continue home medication regimen.
Hyperlipidemia-
Not medically managed,
Follow on outpatient basis.
DVT prophylaxis-SCD
CODE STATUS-full code.
Anticipated Discharge: > 48 hours
Subjective/Interval History
-
Date of Service: March 27, 2024
Patient had large volume bloody bowel movement-about 12Oz in the morning today.
He has a funny sensation in his left lower quadrant but denies having bloating, belching, nausea, abdominal pain, heartburn, epigastric pain.
Denies lightheadedness or dizziness
Objective Data
-
Labs:
Laboratory Results
03/27/24 03/27/24
07:25 11:08
WBC Pending
Hgb 8.0 L Pending
Hct 23.1 L Pending
Plt Count Pending
Sodium Pending
Potassium Pending
Chloride Pending
Carbon Dioxide Pending
BUN Pending
Creatinine Pending
Glucose Pending
Calcium Pending
Total Bilirubin Pending
AST Pending
ALT Pending
Alkaline Phosphatase Pending
Vital Signs:
Vital Signs
Temp Pulse Resp BP Pulse Ox
97.8 F 97 17 132/90 98
03/27/24 07:00 03/27/24 07:00 03/27/24 07:00 03/27/24 07:00 03/27/24 07:00
I&O
03/26/24 03/27/24 03/28/24
06:59 06:59 06:59
Intake Total 400 / 400 2460 / 2460
Output Total 650 / 650 1490 / 1490
Balance -250 / -250 970 / 970 -12
Review of Systems
-
History Source: Patient
All other systems: Not reviewed unless documented
Physical Exam
-
General: Comfortable (On room air.)
HEENT: Normocephalic, Atraumatic and Moist Mucous Membranes
Respiratory: Clear to Auscultation; Negative Wheezes, Rales or Rhonchi
Cardiac: S1/S2 and Murmur (Systolic murmur, 3/6); Negative Rub or Gallop
GI: Soft, Nontender, Nondistended and Normal Bowel Sounds
Musculoskeletal: No Clubbing, No Cyanosis and No Edema
Neuro: AO x 3
Data Reviewed
-
Diagnostic Radiology: Report Reviewed by me
CT Scan: Image personally visualized and interpreted and Report Reviewed by me
Labs: Labs Reviewed by me and Discussed with Physician
[2024-03-27 12:00] LABS: % Eosinophils 3.7 % (0-6); % Immature Granulocytes 0.3 % (0-0.5); % Lymphocytes 25.6 % (20.5-51.1); % Monocytes 8.4 % (1.7-9.3); Absolute Eosinophils 0.1 10^3/uL (0-0.7); Absolute Monocytes 0.3 10^3/uL (0.1-0.6); Absolute Neutrophils 2.3 10^3/uL (1.4-6.5); Hematocrit 23.3 % (39.0-52.0); Mean Corp Hgb Conc. 34.3 g/dL (33.0-37.0); Mean Corpuscular Hgb 31.6 pg (27.0-31.0); Mean Corpuscular Volume 92.1 fL (80.0-94.0); Mean Platelet Volume 10.1 fL (7.4-10.4); Nucleated Red Blood Cells % 0 % (-); Platelet Count 143 10^3/uL (130-400); Red Blood Cell Count 2.53 10^6/uL (4.70-6.10); Red Cell Dist. Width 12.9 % (11.5-14.5); White Blood Cell Count 3.8 10^3/uL (4.8-10.8)
[2024-03-27 12:03] LABS: ALT (SGPT) < 10 U/L (0-50); AST (SGOT) 16 U/L (17-59); Albumin 2.9 g/dl (3.5-5.0); Alkaline Phosphatase 39 U/L (38-126); Blood Urea Nitrogen 15 mg/dl (9-20); Calcium 7.9 mg/dl (8.4-10.2); Carbon Dioxide 24 mmol/L (22-30); Chloride 110 mmol/L (98-107); Estimated Creatinine Clearance 83 ml/min; Glucose 94 mg/dl (70-99); Potassium 4.1 mmol/L (3.5-5.1); Sodium 136 mmol/L (135-145); Total Protein 4.9 g/dl (6.3-8.2); eGFR > 60.00
--- NOTE | 2024-03-27 14:42 | CM ---
Case management following for discharge planning
Chart reviewed
For stat CTA today
Monitoring Labs
CM will continue to follow for d/c needs
Plan - anticipate home no needs
[2024-03-27 15:00] VITALS: BP 149/83
--- NOTE | 2024-03-27 15:01 | W.PN.UPDATE ---
Update Note
Progress Note Update
I saw and evaluated the patient. I reviewed the resident�s note and agree with findings and plan as documented in the resident�s note.
Patient had few more blood containing bowel movement early in the morning. Denies any abdominal pain/nausea/vomiting
1. Lower GI Bleed
Presumed diverticular in nature
Acute blood loss anemia
-C-scope was back showing sigmoid diverticular disease. This was done on a different hospital.
-Patient continued to have bright red blood in stool and hemoglobin has dropped from 11-8 today
-CT abdomen pelvis in morning did not show any acute bleeders
-Continue following up CBC and will require transfusion/supportive care.
-Possible need of repeat CTA to identify bleeder versus colorectal surgery evaluation if develops severe bleed/hypovolemic shock
History of CAD
Elevated BP -not on any medication
Hyperlipidemia
SCD
Full code
Total time spent : 53 mins
[2024-03-27 18:11] LABS: Hematocrit 22.1 % (39.0-52.0); Hemoglobin 7.6 g/dL (13.0-18.0); Mean Corp Hgb Conc. 34.4 g/dL (33.0-37.0); Mean Corpuscular Hgb 31.7 pg (27.0-31.0); Mean Corpuscular Volume 92.1 fL (80.0-94.0); Mean Platelet Volume 10.3 fL (7.4-10.4); Platelet Count 129 10^3/uL (130-400); Red Cell Dist. Width 12.8 % (11.5-14.5); White Blood Cell Count 3.8 10^3/uL (4.8-10.8)
[2024-03-27 19:15] VITALS: BP 136/87
[2024-03-27 23:25] VITALS: BP 150/81
[2024-03-27 23:57] LABS: Mean Corp Hgb Conc. 34.7 g/dL (33.0-37.0); Mean Corpuscular Hgb 31.5 pg (27.0-31.0); Mean Platelet Volume 9.5 fL (7.4-10.4); Platelet Count 132 10^3/uL (130-400); Red Blood Cell Count 2.22 10^6/uL (4.70-6.10); Red Cell Dist. Width 12.8 % (11.5-14.5); White Blood Cell Count 3.7 10^3/uL (4.8-10.8)
[2024-03-27 23:59] LABS: Hematocrit 20.3 % (39.0-52.0)
[2024-03-28] VITALS (12 sets, daily range): BP systolic 125–152; BP diastolic 71–84
[2024-03-28] MEDS: NSS 1000 IV ×2 (06:29→16:11)
[2024-03-28] MEDS: PROTONIX IV IV (07:26)
[2024-03-28] MEDS: NSS (PRESERVATIVE FREE) IV (07:26)
[2024-03-28 08:28] LABS: Hematocrit 20.6 % (39.0-52.0); Hemoglobin 7.2 g/dL (13.0-18.0); Mean Corpuscular Volume 91.6 fL (80.0-94.0); Platelet Count 121 10^3/uL (130-400); Red Blood Cell Count 2.25 10^6/uL (4.70-6.10); White Blood Cell Count 2.8 10^3/uL (4.8-10.8)
[2024-03-28 08:40] LABS: Blood Urea Nitrogen 12 mg/dl (9-20); Calcium 8.2 mg/dl (8.4-10.2); Carbon Dioxide 24 mmol/L (22-30); Chloride 124 mmol/L (98-107); Estimated Creatinine Clearance 83 ml/min; Glucose 84 mg/dl (70-99); Potassium 3.8 mmol/L (3.5-5.1); Sodium 138 mmol/L (135-145); eGFR > 60.00
[2024-03-28 09:52] LABS: % Basophils 0.7 % (0-2); % Eosinophils 4.6 % (0-6); % Immature Granulocytes 0.4 % (0-0.5); % Lymphocytes 35.2 % (20.5-51.1); % Neutrophils 51.8 % (42.2-75.2); Absolute Eosinophils 0.1 10^3/uL (0-0.7); Absolute Lymphocytes 0.9 10^3/uL (1.2-3.4); Absolute Monocytes 0.2 10^3/uL (0.1-0.6); Absolute Neutrophils 1.5 10^3/uL (1.4-6.5); Nucleated Red Blood Cells % 0 % (-)
--- NOTE | 2024-03-28 11:20 | W.PN.GI.CBS2 ---
Today's Communication / Plan
-
trend hb'
2 U PRBC today
Full liquids
Assessment / Plan
-
Patient is an 83 year old male with PMH of diverticulitis (1997), diverticulosis, IBS (constipation-dominant) and CAD (s/p stent) that presented to ED with bright red rectal bleeding. Patient is hemodynamically stable.
Most likely etiology is bleeding related to diverticulosis. Repeat CTA from yesterday was negative for any active bleeding and his bleeding finally seems to be resolving he had a bowel movement today without any blood.
Getting 2 units of packed red blood cells today
Continue to trend hemoglobin
If he does rebleed will likely need colonoscopy and colorectal surgery consult vs repeat CTA/bleeding scan
Full liquids today and if no further bleeding adv to LRD in AM
Subjective
Subjective
Date of Service: March 28, 2024
His bowel movement from earlier today a.m. was finally without any blood. He did have a few bloody bowel movements yesterday and CTA was negative for any active bleeding. He is getting 2 units of packed red blood cells today for drop in hemoglobin
discussed with Dr. Trejo, no abdominal pain
Objective
Data Reviewed
Laboratory Data:
Laboratory Results
03/28/24 06:50
03/28/24 06:50
Laboratory Results
PT 13.1 Sec (11.4-14.6) 03/26/24 02:15
INR 0.99 03/26/24 02:15
APTT 27.1 Sec (23.4-35.0) 03/26/24 02:15
Total Bilirubin 1.0 mg/dl (0.2-1.3) 03/27/24 11:08
AST 16 U/L (17-59) L 03/27/24 11:08
ALT < 10 U/L (0-50) 03/27/24 11:08
Alkaline Phosphatase 39 U/L (38-126) 03/27/24 11:08
Vital Signs and I&O:
Vital Signs
Temp Pulse Resp BP Pulse Ox
98.1 F 77 20 144/84 98
03/28/24 09:59 03/28/24 09:59 03/28/24 09:59 03/28/24 09:59 03/28/24 07:00
I&O
03/27/24 03/28/24 03/29/24
06:59 06:59 06:59
Intake Total 2460 / 2460 1800 / 1800 0 / 0
Output Total 1490 / 1490 1487 / 1487
Balance 970 / 970 313 / 313 0 / 0
03/27/24 CTA
IMPRESSION:
1. No CTA evidence for active GI bleed.
2. No significant acute abnormality identified in the abdomen or pelvis within the limits of this exam, as described above. Chronic changes as described.
Physical Exam
Physical Exam
Cardiology: Normal Sinus Rhythm
Pulmonary: Clear
GI: Soft, Non Distended, Non Tender and Normal Bowel Sounds
--- NOTE | 2024-03-28 11:53 | W.PN.HOSP.TC ---
Today's Communication/Plan
-
2 U PRBC
monitor bleeding
Assessment / Plan
Assessment / Plan
1. Lower GI Bleed
Presumed diverticular in nature
Acute blood loss anemia
-C-scope was back showing sigmoid diverticular disease. This was done on a different hospital.
-Patient continued to have bright red blood in stool and hemoglobin has dropped from 11-8 today
-CT abdomen pelvis did not show any acute bleeders
-Bleeding slowing down somewhat.
-Hemoglobin trended down <7 and ordering 2 u prbc
-If recurrent nonresolving large-volume bleeding will require repeat CTA versus colorectal evaluation.
History of CAD
Elevated BP -not on any medication
Hyperlipidemia
SCD
Full code.
Care plan discussed with GI
Anticipated Discharge: 24 - 48 hours
Subjective/Interval History
-
Date of Service: March 28, 2024
Continues to have bright red blood in stool
frequency and severity is decreasing
Objective Data
-
Labs:
Laboratory Results
03/27/24 03/28/24
23:39 06:50
WBC 3.7 L 2.8 L
Hgb 7.0 L 7.2 L
Hct 20.3 L* 20.6 L*
Plt Count 132 121 L
Sodium 138
Potassium 3.8
Chloride 124 H
Carbon Dioxide 24
BUN 12
Creatinine 0.7
Glucose 84
Calcium 8.2 L
Vital Signs:
Vital Signs
Temp Pulse Resp BP Pulse Ox
98.1 F 70 18 125/75 98
03/28/24 11:00 03/28/24 11:00 03/28/24 11:00 03/28/24 11:00 03/28/24 11:00
I&O
03/27/24 03/28/2424
06:59 06:59 06:59
Intake Total 2460 / 2460 1800 / 1800 0 / 0
Output Total 1490 / 1490 1487 / 1487
Balance 970 / 970 313 / 313 0 / 0
Review of Systems
-
Respiratory: Reports No Symptoms
Cardiac: Reports No Symptoms
Abdomen/GI: Reports Bloody Stools; Denies Abdominal Pain, Nausea or Vomiting
Physical Exam
-
General: Obese
HEENT: Negative Oxygen
Respiratory: Clear to Auscultation
Cardiac: Regular Rhythm and S1/S2; Negative Murmur
GI: Soft, Nontender and Nondistended
Musculoskeletal: No Edema
Neuro: AO x 3
[2024-03-29] VITALS (7 sets, daily range): BP systolic 113–150; BP diastolic 70–88
[2024-03-29] MEDS: PROTONIX IV IV (08:11)
[2024-03-29] MEDS: NSS (PRESERVATIVE FREE) IV (08:11)
--- NOTE | 2024-03-29 10:31 | W.PN.GI.CBS2 ---
Today's Communication / Plan
-
trend HB
monitor for any active bleeding
Assessment / Plan
-
Patient is an 83 year old male with PMH of diverticulitis (1997), diverticulosis, IBS (constipation-dominant) and CAD (s/p stent) that presented to ED with bright red rectal bleeding. Patient is hemodynamically stable.
Most likely etiology is bleeding related to diverticulosis. CTA 03/27 was negative for any active bleeding and his bleeding finally seems to be resolving he had a bowel movement today with old blood no further active bleeding noted.
got 2 units of packed red blood cells 03/28, will repeat hemoglobin today posttransfusion
Continue to trend hemoglobin
If he does rebleed will likely need colonoscopy and colorectal surgery consult vs repeat CTA/bleeding scan
continue clears today and if no further bleeding can adv to full liquids/LRD
Subjective
Subjective
Date of Service: March 29, 2024
Today morning he had a small amount of stool with old blood. Last episode of red blood in the stool was yesterday. He denies any abdominal pain no nausea or vomiting no dizziness. He did receive 2 units of packed red blood cells yesterday
Objective
Data Reviewed
Laboratory Data:
Laboratory Results
03/28/24 06:50
03/28/24 06:50
Laboratory Results
PT 13.1 Sec (11.4-14.6) 03/26/24 02:15
INR 0.99 03/26/24 02:15
APTT 27.1 Sec (23.4-35.0) 03/26/24 02:15
Total Bilirubin 1.0 mg/dl (0.2-1.3) 03/27/24 11:08
AST 16 U/L (17-59) L 03/27/24 11:08
ALT < 10 U/L (0-50) 03/27/24 11:08
Alkaline Phosphatase 39 U/L (38-126) 08/09/24 11:08
Vital Signs and I&O:
Vital Signs
Temp Pulse Resp BP Pulse Ox
98.5 F 70 17 150/76 95
03/29/24 07:00 03/29/24 07:00 03/29/24 07:00 03/29/24 07:00 03/29/24 07:00
I&O
03/28/24 03/29/24 03/30/24
06:59 06:59 06:59
Intake Total 1800 / 1800 3550 / 3550
Output Total 1487 / 1487 750 / 750
Balance 313 / 313 2800 / 2800
Physical Exam
Physical Exam
Cardiology: Normal Sinus Rhythm
Pulmonary: Clear
GI: Soft, Non Distended, Non Tender and Normal Bowel Sounds
[2024-03-29 11:03] LABS: % Basophils 0.8 % (0-2); % Eosinophils 3.4 % (0-6); % Immature Granulocytes 0.3 % (0-0.5); % Lymphocytes 28.9 % (20.5-51.1); % Monocytes 7.6 % (1.7-9.3); Absolute Eosinophils 0.1 10^3/uL (0-0.7); Absolute Monocytes 0.3 10^3/uL (0.1-0.6); Absolute Neutrophils 2.1 10^3/uL (1.4-6.5); Hematocrit 23.5 % (39.0-52.0); Hemoglobin 8.4 g/dL (13.0-18.0); Mean Corp Hgb Conc. 35.7 g/dL (33.0-37.0); Mean Corpuscular Hgb 31.5 pg (27.0-31.0); Mean Platelet Volume 10.1 fL (7.4-10.4); Nucleated Red Blood Cells % 0 % (-); Platelet Count 136 10^3/uL (130-400); Red Blood Cell Count 2.67 10^6/uL (4.70-6.10); Red Cell Dist. Width 13.3 % (11.5-14.5); White Blood Cell Count 3.5 10^3/uL (4.8-10.8)
--- NOTE | 2024-03-29 13:58 | W.PN.HOSP.TC ---
Addendum entered and electronically signed by Matias Trejo MD 03/29/24 16:06:
GI bleed exacerbated by asa use
Original Note:
Today's Communication/Plan
-
monitor bleeding
f/u CBC
Assessment / Plan
Assessment / Plan
1. Lower GI Bleed
Presumed diverticular in nature
Acute blood loss anemia
-C-scope was back showing sigmoid diverticular disease. This was done on a different hospital.
-Patient continued to have bright red blood in stool and hemoglobin has dropped from 11-8 today
-CT abdomen pelvis did not show any acute bleeders
-If recurrent nonresolving large-volume bleeding will require repeat CTA versus colorectal evaluation.
-Hemoglobin 8.4 today continue monitoring
-Discussed with GI and diet advanced to full liquid diet.
History of CAD
Elevated BP -not on any medication
Hyperlipidemia
SCD
Full code.
Care plan discussed with GI
Anticipated Discharge: Within 24 hours
Subjective/Interval History
-
Date of Service: March 29, 2024
small old blood containing stool
no other reported problems
Objective Data
-
Labs:
Laboratory Results
03/29/24
10:49
WBC 3.5 L
Hgb 8.4 L
Hct 23.5 L
Plt Count 136
Vital Signs:
Vital Signs
Temp Pulse Resp BP Pulse Ox
98.2 F 65 18 138/84 98
03/29/24 11:00 03/29/24 11:00 03/29/24 11:00 03/29/24 11:00 03/29/24 11:00
I&O
03/28/24 03/29/24 03/30/24
06:59 06:59 06:59
Intake Total 1800 / 1800 3550 / 3550
Output Total 1487 / 1487 750 / 750
Balance 313 / 313 2800 / 2800
Review of Systems
-
Respiratory: Reports No Symptoms
Cardiac: Reports No Symptoms
Abdomen/GI: Reports No Symptoms
Physical Exam
-
General: Obese
HEENT: Negative Oxygen
Respiratory: Clear to Auscultation
Cardiac: Regular Rhythm and S1/S2; Negative Murmur
GI: Soft, Nontender and Nondistended
Musculoskeletal: No Edema
Neuro: AO x 3
[2024-03-29] MEDS: NON-FORMULARY ITEM 1 UNIT PO ×2 (17:52)
[2024-03-29] MEDS: NON-FORMULARY ITEM 500 MG PO (17:52)
--- NOTE | 2024-03-30 06:33 | PTCARENOTE ---
Pt slept well overnight. No issues to report. Will monitor.
[2024-03-30] MEDS: NSS (PRESERVATIVE FREE) IV (07:28)
[2024-03-30] MEDS: PROTONIX IV IV (07:28)
[2024-03-30] MEDS: NON-FORMULARY ITEM 500 MG PO (07:29)
[2024-03-30] MEDS: NON-FORMULARY ITEM 1 UNIT PO (07:30)
--- NOTE | 2024-03-30 07:59 | W.PN.GI.CBS2 ---
Today's Communication / Plan
-
LRD if Hb stable today
possible DC today or tomorrow if no further bleeding
Assessment / Plan
-
Patient is an 83 year old male with PMH of diverticulitis (1997), diverticulosis, IBS (constipation-dominant) and CAD (s/p stent) that presented to ED with bright red rectal bleeding. Patient is hemodynamically stable.
Most likely etiology is bleeding related to diverticulosis. CTA 03/27 was negative for any active bleeding and his bleeding finally seems to be resolving no further active bleeding noted. 4 small BMs with old blood yesterday
got 2 units of packed red blood cells 03/28, hemoglobin stable posttransfusion awaiting labs from today
Continue to trend hemoglobin
If he does rebleed will likely need colonoscopy and colorectal surgery consult vs repeat CTA/bleeding scan
continue full liquids if hemoglobin today stable will advance to low residue diet and if no further bleeding on LRD okay to DC home later today or tomorrow
Subjective
Subjective
Date of Service: March 30, 2024
He had 4 small stools yesterday with very small amount of old blood. Awaiting labs from today. No nausea vomiting abdominal pain on full liquids
Objective
Data Reviewed
Laboratory Data:
Laboratory Results
03/28/24 06:50
Laboratory Results
PT 13.1 Sec (11.4-14.6) 03/26/24 02:15
INR 0.99 03/26/24 02:15
APTT 27.1 Sec (23.4-35.0) 03/26/24 02:15
Total Bilirubin 1.0 mg/dl (0.2-1.3) 03/27/24 11:08
AST 16 U/L (17-59) L 03/27/24 11:08
ALT < 10 U/L (0-50) 03/27/24 11:08
Alkaline Phosphatase 39 U/L (38-126) 03/27/24 11:08
Vital Signs and I&O:
Vital Signs
Temp Pulse Resp BP Pulse Ox
97.5 F 68 16 141/81 97
03/29/24 23:26 03/29/24 23:26 03/29/24 23:26 03/29/24 23:26 03/29/24 23:26
I&O
03/29/24 03/30/24 03/31/24
06:59 06:59 06:59
Intake Total 3550 / 3550 2660 / 2660
Output Total 750 / 750 550 / 550
Balance 2800 / 2800 2110 / 2110
Physical Exam
Physical Exam
Cardiology: Normal Sinus Rhythm and Murmur (Systolic murmur)
Pulmonary: Clear
GI: Soft, Non Distended, Non Tender and Normal Bowel Sounds
[2024-03-30 08:15] VITALS: BP 133/78
[2024-03-30 10:26] LABS: Hematocrit 24.1 % (39.0-52.0); Hemoglobin 8.1 g/dL (13.0-18.0); Mean Corp Hgb Conc. 33.6 g/dL (33.0-37.0); Mean Corpuscular Hgb 30.2 pg (27.0-31.0); Mean Corpuscular Volume 89.9 fL (80.0-94.0); Mean Platelet Volume 9.9 fL (7.4-10.4); Platelet Count 168 10^3/uL (130-400); Red Blood Cell Count 2.68 10^6/uL (4.70-6.10); Red Cell Dist. Width 13.5 % (11.5-14.5); White Blood Cell Count 3.2 10^3/uL (4.8-10.8)
--- NOTE | 2024-03-30 13:45 | W.PN.HOSP.TC ---
Addendum entered and electronically signed by Julio César Trejo MD 03/30/24 15:51:
Mr. Mendez walking around his room. States he been walking up and down the [place] without much issue. Hgb stable. No further episodes of fresh b lood in still. Last BM dark/purple.
NAD, resting comfortably in bed
Scleral anicteric
Moist mucous membranes
No JVD
CTA bilateral
Normal S1-S2 no murmurs
Soft nontender nondistended bowel sounds active
No peripheral pitting edema
Moves extremities spontaneously
AAOx3
GI bleed. Hgb stable. S/p 2u PRBC. Outpatient GI follow up.
High BP keep bp log. Outpatient PCP follow up
CAD s/p PCI
DC home if cleared by GI
Original Note:
Today's Communication/Plan
-
Low residue diet,
Monitor for active GI bleed per rectum.
If no GI bleed plan to discharge home tomorrow.
Assessment / Plan
Assessment / Plan
Assessment-
83-year-old male with PMHx significant for history of diverticulitis-diverticular bleed (in 2021), IBS COPD, and asthma, presented with painless GI bleeding-admitted for evaluation of acute GI bleed
Plan-
GI bleed-
Secondary to diverticulosis (given his past medical history).
His colonoscopy results from 2021 reviewed-evidence for severe sigmoid diverticulosis and grade 1 internal hemorrhoids.
Trending H&H-dropped from 11.3 on 03/24-8 on 03/27. Dropped to 7 over the weekend. Patient received 2 units of blood transfusion.
Continue to trend H&H.
Advance to low residue diet and monitor for by rectal bleeding. Protonix. Patient's home aspirin dosing is on hold continue holding blood thinners.
no evidence of active bleeding on CT angiogram of abdomen and pelvis.
GI on board, appreciate input, recommended plan is to discharge patient if low residue diet is well-tolerated, and follow-up with GI, colorectal surgery on outpatient basis.
If patient starts having lower GI bleed, plan is to obtain CT angiogram.
Continue to monitor patient for ongoing active rectal bleeding symptoms.
Elevated blood pressure-
Likely secondary to volume overload in the setting of IV fluid resuscitation for acute GI losses.
No known history of hypertension.
Will likely resolve, follow-up in outpatient basis.
CAD s/p PCI (> 1 year ago)
Patient on aspirin, currently aspirin on hold.
COPD/asthma-
Continue home medication regimen.
Hyperlipidemia-
Not medically managed,
Follow on outpatient basis.
DVT prophylaxis-SCD1.
Anticipated Discharge: Today
Subjective/Interval History
-
Date of Service: March 30, 2024
Last bowel movement was in the a.m. today, brownish purple-colored liquid stools-Gem stool scale 6.
Denies having any abdominal pain, nausea, vomitings, bloating, belching, chest pain, shortness of breath, lightheadedness, dizziness.
Able to tolerate full liquid diet and is advance it to low residue diet.
Objective Data
-
Labs:
Laboratory Results
03/30/24 03/30/24
07:08 13:00
WBC 3.2 L
Hgb 8.1 L Pending
Hct 24.1 L
Plt Count 168 D
Vital Signs:
Vital Signs
Temp Pulse Resp BP Pulse Ox
97.8 F 73 16 133/78 98
03/30/24 08:15 03/30/24 08:15 03/30/24 08:15 03/30/24 08:15 03/30/24 08:15
I&O
03/29/24 03/30/24 03/31/24
06:59 06:59 06:59
Intake Total 3550 / 3550 2660 / 2660
Output Total 750 / 750 550 / 550
Balance 2800 / 2800 2109 / 2109
Review of Systems
-
History Source: Patient
Constitutional: Reports No Symptoms
Respiratory: Reports No Symptoms
Cardiac: Reports No Symptoms
Abdomen/GI: Reports Bloody Stools (Tarry colored, Gem stool scale 6)
Breast: Reports No Symptoms
Genitourinary: Reports No Symptoms
Musculoskeletal: Reports No Symptoms
Skin: Reports No Symptoms
Neuro: Reports No Symptoms
Physical Exam
-
General: Well Developed, Well Nourished, No Apparent Distress and Comfortable
HEENT: Normocephalic, Atraumatic and Moist Mucous Membranes
Respiratory: Clear to Auscultation; Negative Wheezes, Rales or Rhonchi
Cardiac: Regular Rhythm, S1/S2 and Murmur (3/6 systolic.); Negative Rub, JVD or Gallop
GI: Soft, Nontender, Nondistended and Normal Bowel Sounds
Genito-urinary: Costovertebral Angle Tend
Musculoskeletal: No Clubbing, No Cyanosis and No Edema
Neuro: AO x 3
Psych: Calm
Data Reviewed
-
CT Scan: Image personally visualized and interpreted and Report Reviewed by me
Labs: Labs Reviewed by me and Discussed with Physician
[2024-03-30 14:57] LABS: Hemoglobin 8.9 g/dL (13.0-18.0)
--- NOTE | 2024-03-30 15:35 | CM ---
Case management following for discharge planning
Chart reviewed. Met with pt
Labs pending
Will have ride home with family member
Plan - anticipate home no needs
[2024-03-30 15:40] VITALS: BP 111/84
[2024-03-30 23:15] VITALS: BP 150/72
[2024-03-31 06:33] LABS: Hematocrit 21.8 % (39.0-52.0); Hemoglobin 7.6 g/dL (13.0-18.0); Mean Corp Hgb Conc. 34.9 g/dL (33.0-37.0); Mean Corpuscular Hgb 30.6 pg (27.0-31.0); Mean Corpuscular Volume 87.9 fL (80.0-94.0); Mean Platelet Volume 10.2 fL (7.4-10.4); Platelet Count 143 10^3/uL (130-400); Red Blood Cell Count 2.48 10^6/uL (4.70-6.10); Red Cell Dist. Width 13.3 % (11.5-14.5); White Blood Cell Count 2.7 10^3/uL (4.8-10.8)
[2024-03-31 06:59] LABS: Blood Urea Nitrogen 13 mg/dl (9-20); Carbon Dioxide 26 mmol/L (22-30); Chloride 108 mmol/L (98-107); Estimated Creatinine Clearance 72 ml/min; Glucose 88 mg/dl (70-99); Potassium 4.2 mmol/L (3.5-5.1); Sodium 137 mmol/L (135-145); eGFR > 60.00
[2024-03-31] MEDS: PROTONIX IV IV (07:29)
[2024-03-31] MEDS: NSS (PRESERVATIVE FREE) IV (07:29)
[2024-03-31] MEDS: NON-FORMULARY ITEM 500 MG PO (07:30)
[2024-03-31] MEDS: NON-FORMULARY ITEM 1 UNIT PO (07:30)
[2024-03-31 07:47] VITALS: BP 127/72
--- NOTE | 2024-03-31 09:42 | W.PN.HOSP.TC ---
Addendum entered and electronically signed by Julio César Trejo MD 03/31/24 14:57:
Mr. Mendez is laying in his bed with his legs elevated. Denies BMand bloody stools
Asking for Mag Citrate
NAD, resting comfortably in bed
Scleral anicteric
Moist mucous membranes
No JVD
CTA bilateral
Normal S1-S2 no murmurs
Soft nontender nondistended bowel sounds active
No peripheral pitting edema
Moves extremities spontaneously
AAOx3
GI bleed. Hgb stable. S/p 2u PRBC. Outpatient GI follow up.
-Hgb this AM trended down to the 7's but repeat was in the 9's. Likely 7 was a lab error.
-Gi initially planning to scope but has deffered and would like to repeat hgb in 2 hours.
High BP keep bp log. Outpatient PCP follow up
CAD s/p PCI
DC home if cleared by GI
Original Note:
Today's Communication/Plan
-
Plan for a colonoscopy versus discharge
Pending GI decision.
Continue clear liquids for now.
Assessment / Plan
Assessment / Plan
Assessment-
83-year-old male with PMHx significant for history of diverticulitis-diverticular bleed (in 2021), IBS COPD, and asthma, presented with painless GI bleeding-admitted for evaluation of acute GI bleed
Plan-
GI bleed-
Secondary to diverticulosis (given his past medical history).
His colonoscopy results from 2021 reviewed-evidence for severe sigmoid diverticulosis and grade 1 internal hemorrhoids.
Trending H&H-dropped from 11.3 on 03/24-8 on 03/27. Dropped to 7 over the weekend. Patient received 2 units of blood transfusion.
Continue to trend H&H.
Advance to low residue diet and monitor for by rectal bleeding. Protonix. Patient's home aspirin dosing is on hold continue holding blood thinners.
no evidence of active bleeding on CT angiogram of abdomen and pelvis.
GI on board, appreciate input, recommended plan is to discharge patient if low residue diet is well-tolerated, and follow-up with GI, colorectal surgery on outpatient basis.
If patient starts having lower GI bleed, plan is to obtain CT angiogram.
Overnight patient hemoglobin fell down to 7.6 on 03/31, however no bowel movements or acute active GI bleed. Repeat hemoglobin is at 9. Might be a lab error.
Updated GI regarding the same. Pending discharge based on GI clearance.
Elevated blood pressure-
Likely secondary to volume overload in the setting of IV fluid resuscitation for acute GI losses.
No known history of hypertension.
Will likely resolve, follow-up in outpatient basis.
CAD s/p PCI (> 1 year ago)
Patient on aspirin, currently aspirin on hold.
COPD/asthma-
Continue home medication regimen.
Hyperlipidemia-
Not medically managed,
Follow on outpatient basis.
DVT prophylaxis-SCD1.
Anticipated Discharge: Within 24 hours
Subjective/Interval History
-
Date of Service: March 31, 2024
Small bowel movements, brown/purple-colored stools, not formed stools.
Rectal urgency with passing flatus but no actual bowel movement.
Denies having abdominal pain, nausea, bloating, belching, and was able to keep his food down.
Objective Data
-
Labs:
Laboratory Results
03/31/24 03/31/24
06:01 09:42
WBC 2.7 L
Hgb 7.6 L Pending
Hct 21.8 L
Plt Count 143
Sodium 137
Potassium 4.2
Chloride 108 H
Carbon Dioxide 26
BUN 13
Creatinine 0.8
Glucose 88
Calcium 9.0
Vital Signs:
Vital Signs
Temp Pulse Resp BP Pulse Ox
98.1 F 67 17 127/72 98
03/31/24 07:47 03/31/24 07:47 03/31/24 07:47 03/31/24 07:47 03/31/24 07:47
I&O
03/30/24 03/31/24 04/01/24
06:59 06:59 06:59
Intake Total 2660 / 2660 1440 / 1440
Output Total 550 / 550 850 / 850 350 / 350
Balance 2110 / 2110 -850 / -850 1090 / 1090
Review of Systems
-
History Source: Patient
Constitutional: Reports No Symptoms
Respiratory: Reports No Symptoms
Cardiac: Reports No Symptoms
Abdomen/GI: Reports Black Stools
Genitourinary: Reports No Symptoms
Musculoskeletal: Reports Edema
Skin: Reports No Symptoms
Neuro: Denies Dizzy, Headache or Weakness
Hematologic / Lymphatic: Reports No Symptoms
Physical Exam
-
General: No Apparent Distress and Comfortable (On room air.)
HEENT: Normocephalic, Atraumatic and Moist Mucous Membranes
Respiratory: Clear to Auscultation; Negative Wheezes, Rales or Rhonchi
Cardiac: Regular Rhythm and S1/S2; Negative Murmur or Rub
GI: Soft, Nontender, Nondistended and Normal Bowel Sounds
Genito-urinary: No Costovertebral Tender
Musculoskeletal: No Clubbing, No Cyanosis and No Edema
Neuro: AO x 3
Psych: Calm
--- NOTE | 2024-03-31 10:34 | W.PN.GI.CBS2 ---
Today's Communication / Plan
-
Continue to trend hgb
Assessment / Plan
-
Patient is an 83 year old male with PMH of diverticulitis (1997), diverticulosis, IBS (constipation-dominant) and CAD (s/p stent) that presented to ED with bright red rectal bleeding. Patient is hemodynamically stable.
Most likely etiology is bleeding related to diverticulosis. CTA 03/27 was negative for any active bleeding and his bleeding seems to be resolving, no further bright red bleeding noted since 2 days ago.
got 2 units of packed red blood cells 03/28.
hemoglobin dropped to 7.6 this am (might have been lab error). Repeat hgb is 9.
#Recommendations
- continue to trend hemoglobin, v/s
- colorectal surgery consulted
- Will follow clinically for now
Subjective
Subjective
Date of Service: March 31, 2024
Patient does not complain of any SOB, CP, lightheadedness/ dizziness. His last BM was yesterday evening which was small, loose, and non-bloody. He has not noticed any bright red rectal bleeding since two days ago. He is able to tolerate diet w/o
any problems.
Objective
Data Reviewed
Laboratory Data:
Laboratory Results
03/31/24 09:42
03/31/24 06:01
Laboratory Results
PT 13.1 Sec (11.4-14.6) 03/26/24 02:15
INR 0.99 03/26/24 02:15
APTT 27.1 Sec (23.4-35.0) 03/26/24 02:15
Total Bilirubin 1.0 mg/dl (0.2-1.3) 03/27/24 11:08
AST 16 U/L (17-59) L 03/27/24 11:08
ALT < 10 U/L (0-50) 03/27/24 11:08
Alkaline Phosphatase 39 U/L (38-126) 03/27/24 11:08
Vital Signs and I&O:
Vital Signs
Temp Pulse Resp BP Pulse Ox
98.1 F 67 17 127/72 98
03/31/24 07:47 03/31/24 07:47 03/31/24 07:47 03/31/24 07:47 03/31/24 07:47
I&O
03/30/24 03/31/24 04/01/24
06:59 06:59 06:59
Intake Total 2660 / 2660 1440 / 1440
Output Total 550 / 550 850 / 850 350 / 350
Balance 2110 / 2110 -850 / -850 1090 / 1090
Physical Exam
Physical Exam
HEENT: Anicteric and Moist mucous membranes
Cardiology: Normal Sinus Rhythm, S1 and S2
Pulmonary: Clear
GI: Soft, Non Distended and Non Tender
Extremities: No Edema
--- NOTE | 2024-03-31 12:30 | CON.CRS ---
Consultation
-
Date/Time Consultation Requested: 03/31/24 @8:15
Date/Time Consultation Performed: 03/31/23 @9:00
Requesting Provider: Kizzy Deshpande MD
Performing Provider: Edis Roberson MD
Reason for Consultation: GI bleed
Medical History
-
Chief Complaint: GI bleeding for the past week
History of Present Illness:
83-year-old male admitted on 03/26/2024 with rectal bleeding that began 2 days prior, presumably from diverticulosis.� He has a history of a diverticular bleed 2 years ago that resolved spontaneously. �A colonoscopy revealed pandiverticular disease.�
On admission he was having multiple episodes of bright blood per rectum without abdominal pain.� The stools were loose prior to this and he has a history of chronic constipation managed with Benefiber and magnesium citrate.� Throughout his
hospitalization he has remained hemodynamically stable.� His initial hemoglobin was 11.3 g/dL and a CT angio on 03/27/2024 revealed no evidence of active bleeding.� He continued with a small amount of intermittent bleeding and his hemoglobin drifted
down to a mariam of 7.2 g/dL on 03/28/2024 and received 2 units of blood.� There has been no further bleeding for the past 2 days but his hemoglobin dropped from 8.9 g/dL to 7.6 g/dL this morning.� He has no complaints and has not had a bowel movement
overnight.� The last couple of bowel movements showed some old blood.� He is tolerating a low residue. �
Past Medical History
Past Medical History: Asthma, CAD, Cancer (skin cancer), COPD, Hypercholesterolemia and Other (diverticular bleed)
Past Surgical History: Hernia Repair (bilateral inguinal hernia followed left inguinal hernia repair for a recurrence) and Other
Social History
Tobacco: Former Smoker
Alcohol: Daily
Personal:
Living: With Family
Allergies / Home Medications
Allergy/AdvReac Type Severity Reaction Status Date / Time
Cephalosporins Allergy Unknown Verified 03/26/24 01:56
penicillin G Allergy Rash Verified 03/26/24 01:56
CHILD
Penicillins Allergy Rash Verified 03/26/24 01:56
CHILD
�Medication �Instructions �Recorded �Confirmed �Type
ascorbic acid (vitamin C) 500 mg 500 - 1,500 mg PO DAILY Supplement 08/17/22 03/26/24 History
tablet (Vitamin C)
aspirin 81 mg capsule 81 mg PO HS Blood Clot 08/17/22 03/26/24 History
Prevention/Tx
cholecalciferol (vitamin D3) 25 25 mcg PO DAILY PRN prn 08/17/22 03/26/24 History
mcg (1,000 unit) tablet (Vitamin
D3)
guar gum 1 tbsp PO DAILY Supplement 08/17/22 03/26/24 History
polyethylene glycol 3350 17 gram 17 g PO DAILY PRN constipation 08/17/22 03/26/24 History
oral powder packet (Miralax)
zinc 50 mg tablet 50 mg PO DAILY PRN prn 08/17/22 03/26/24 History
apple cider vinegar 2 oz PO DAILY Supplement 06/24/23 03/26/24 History
magnesium citrate 4 gram oral 100 mg PO DAILY PRN prn 06/24/23 03/26/24 History
packet
acetaminophen 500 mg tablet 1,000 mg (2 x 500 mg) PO Q6HPRN 06/28/23 03/26/24 Rx
(Tylenol Extra Strength) PRN mild pain #1 tab
Review of Systems
-
History Source: Patient
All other systems: Negative unless noted
A 10 point review of systems was completed, and was negative except as per HPI.
Physical Exam
Vital Signs
Temp 98.1 F 03/31/24 07:47
Pulse 67 03/31/24 07:47
Resp Rate 17 03/31/24 07:47
Blood pressure 127/72 03/31/24 07:47
SaO2 98 03/31/24 07:47
Body Mass Index (BMI) 27.4
Lab Results / Allergies
03/31/24 09:42
03/31/24 06:01
WBC 2.7 10^3/uL (4.8-10.8) L 03/31/24 06:01
Hgb 9.0 g/dL (13.0-18.0) L 03/31/24 09:42
Hct 21.8 % (39.0-52.0) L 03/31/24 06:01
Plt Count 143 10^3/uL (130-400) 03/31/24 06:01
Abs Immat Gran (auto) 0.0 10^3/uL (0-0.05) 03/29/24 10:49
Neutrophils % 59.0 % (42.2-75.2) 03/29/24 10:49
Allergy/AdvReac Type Severity Reaction Status Date / Time
Cephalosporins Allergy Unknown Verified 03/26/24 01:56
penicillin G Allergy Rash Verified 03/26/24 01:56
CHILD
Penicillins Allergy Rash Verified 03/26/24 01:56
CHILD
Physical Exam
General: Well Developed, Well Nourished and No Apparent Distress
HEENT: Anicteric
GI: Soft, Non Tender and Non Distended
Neuro: Awake and Alert
Data Reviewed
-
CT Scan: Image Personally Visualized and interpreted, Report Reviewed by me and Discussed with Patient
Labs: Labs Reviewed by me and Discussed with Patient
Assessment / Plan
-
Lower GI bleed, most likely due to diverticular disease.
Clinically there has been no evidence of active bleeding. I suspect a lab error and have ordered a repeat hemoglobin which is now 9 g/dL.
There are no plans for further bleeding localization and surgery is not indicated.
Disposition as per the primary team.
Will follow as needed.
[2024-03-31] MEDS: NULYTELY SOLUTION 4 LITERS PO (12:47)
[2024-03-31] MEDS: CITROMA 300 ML PO (15:15)
[2024-03-31 16:42] VITALS: BP 161/91
[2024-03-31 16:44] LABS: Hemoglobin 9.3 g/dL (13.0-18.0)
--- NOTE | 2024-03-31 17:05 | W.DCSUMMARY ---
Discharge Summary
Discharge Data
Date of Admission: 03/26/24
Date of Discharge: 03/31/24
-
Pending Results: No
Hospital Course
Admission diagnosis-
Acute GI bleed
Elevated blood pressure without diagnosis of hypertension.
Conditions [employer]INE [employer]-
CAD s/p PCI greater than 1 year ago
COPD/asthma
Hyperlipidemia
Hospital course-
During patient's 6-day hospital course patient initially had large bowel movement with bright red blood, was started on IV fluid resuscitation, his aspirin was held, bowel rest with n.p.o. was given and his hemoglobin gradually trended down initial
2 days. Upon reviewing his colonoscopy results from 2021 (Dr. Woodward Ernest)-and found evidence for severe sigmoid diverticulosis and grade 1 internal hemorrhoids. Over the weekend patient had another large bowel movement with 14 ounces of blood
and his hemoglobin acutely dropped down to less than 7 requiring 2 units of blood transfusion. Also a CTA of abdomen/pelvis is obtained which has no evidence for any acute AVM. Patient's diet was advanced at on 03/30 from clear liquids to full
liquids and low residue diet and patient was kept overnight to monitor for any acute onset of GI bleed or drop in hemoglobin. His hemoglobin falsely dropped down to 7.6 in the setting of no bloody bowel movements. Repeat hemoglobin was at 9.3 at
the time of discharge.
During this admission over the course of 03/28-03/31 patient was also found to have elevated blood pressure. Patient does not have a history of hypertension. Hence patient is not started on any blood pressure medications and patient need to
follow-up in outpatient basis with his primary care, as well as GI.
Data reviewed-
[id number]-biaend sigmoid diverticulosis and grade 1 internal hemorrhoid
CTA of abdomen/pelvis-03/27/2024-
1. No CTA evidence for active GI bleed.
2. No significant acute abnormality identified in the abdomen or pelvis within the limits of this exam, as described above. Chronic changes as described.
Discharge Plan
-
Patient Disposition: Home (Routine Discharge)
Discharge Diagnosis/Procedures: Acute GI bleed
Condition: Fair
Diet: As tolerated
Activity: No restrictions
Driving Restrictions: As prior to admission
Activity Restrictions/Additional Instructions:
Please avoid taking aspirin and NSAIDS as they can increase your risk of Bleeding.
Instructions: Constipation, Adult (DC), Diverticulosis (DC), Gastrointestinal Bleeding (DC)
Referrals:
Nichole Mendez MD [Family Provider] -
Additional Discharge Medication Instructions: Follow up with your primary GI in 2 weeks
Prescriptions:
New
pantoprazole 40 mg tablet,delayed release (DR/EC)
40 mg PO DAILY PRN (Reason: gastritis) Qty: 10 0RF
Continued
polyethylene glycol 3350 [Miralax] 17 gram Powder In Packet
17 g PO DAILY PRN (Reason: constipation)
ascorbic acid (vitamin C) [Vitamin C] 500 mg Tablet
500 - 1,500 mg PO DAILY
zinc 50 mg Tablet
50 mg PO DAILY PRN (Reason: prn)
Patient Comments:
pt takes it only when he will be around a lot of people.
cholecalciferol (vitamin D3) [Vitamin D3] 25 mcg (1,000 unit) Tablet
25 mcg PO DAILY PRN (Reason: prn)
guar gum Packet
1 tbsp PO DAILY
magnesium citrate 4 gram Packet
100 mg PO DAILY PRN (Reason: prn)
apple cider vinegar
2 oz PO DAILY
acetaminophen [Tylenol Extra Strength] 500 mg tablet
1,000 mg PO Q6HPRN PRN (Reason: mild pain) Qty: 1 0RF
Discontinued
aspirin 81 mg Capsule
81 mg PO HS
Discharge Orders:
Discharge Patient (As Directed); Ordered 03/31/24
Ordered By: Kizzy Deshpande
Discharge Date and Time
Print Language: CANADIAN
== END 2024-03-31 17:48 | disposition home or self-care (01) | DRG 378 ==
LOC: 3 WEST ACU 03:55
PROVIDERS: Clinical Nurse Specialist Family Health; Hospitalist; Internal Medicine Gastroenterology; Nurse Practitioner; Nurse Practitioner Adult Health; Registered Nurse; Student in an Organized Health Care Education/Training Program; ADMITTING PHYSICIAN Internal Medicine; ATTENDING PHYSICIAN Hospitalist; CONSULT PHYSICIAN Internal Medicine Gastroenterology; EMERGENCY PHYSICIAN Emergency Medicine; FAMILY PHYSICIAN Internal Medicine; OTHER PHYSICIAN Surgery
DX: K57.31 Diverticulosis of large intestine without perforation or abscess with bleeding (principal); D62 Acute posthemorrhagic anemia; D68.32 Hemorrhagic disorder due to extrinsic circulating anticoagulants; I25.10 Atherosclerotic heart disease of native coronary artery without angina pectoris; J44.9 Chronic obstructive pulmonary disease, unspecified; K64.0 First degree hemorrhoids; J45.909 Unspecified asthma, uncomplicated; E78.00 Pure hypercholesterolemia, unspecified; Z95.5 Presence of coronary angioplasty implant and graft
CPT/HCPCS: 74174; 80048; 80053; 85014; 85018; 85025; 85027; 85610; 85730; 86850; 86900; 86901; 86920; 93005; 99285; P9016; Q9967

== ENCOUNTER → 2024-11-02 08:23 | Outpatient (REF) | payer OTHER, SELFPAY ==
[2024-11-02 09:11] LABS: % Basophils 1.2 % (0-2); % Eosinophils 6.9 % (0-6); % Immature Granulocytes 0.4 % (0-0.5); % Lymphocytes 40.8 % (20.5-51.1); % Neutrophils 40.7 % (42.2-75.2); Absolute Eosinophils 0.2 10^3/uL (0-0.7); Absolute Lymphocytes 1.1 10^3/uL (1.2-3.4); Absolute Monocytes 0.3 10^3/uL (0.1-0.6); Absolute Neutrophils 1.1 10^3/uL (1.4-6.5); Hematocrit 25.3 % (39.0-52.0); Hemoglobin 7.8 g/dL (13.0-18.0); Mean Corp Hgb Conc. 30.8 g/dL (33.0-37.0); Mean Corpuscular Hgb 24.5 pg (27.0-31.0); Mean Corpuscular Volume 79.3 fL (80.0-94.0); Mean Platelet Volume 11.6 fL (7.4-10.4); Nucleated Red Blood Cells % 0 % (-); Platelet Count 185 10^3/uL (130-400); Red Blood Cell Count 3.19 10^6/uL (4.70-6.10); Red Cell Dist. Width 19.2 % (11.5-14.5); White Blood Cell Count 2.6 10^3/uL (4.8-10.8)
[2024-11-02 09:55] LABS: ALT (SGPT) 15 U/L (0-50); AST (SGOT) 18 U/L (17-59); Albumin 4.3 g/dl (3.5-5.0); Alkaline Phosphatase 58 U/L (38-126); Blood Urea Nitrogen 14 mg/dl (9-20); Calcium 9.4 mg/dl (8.4-10.2); Carbon Dioxide 25 mmol/L (22-30); Chloride 107 mmol/L (98-107); Glucose 94 mg/dl (70-99); HDL Cholesterol 70 mg/dl; Iron 38 ug/dl (49-181); LDL Cholesterol, Calculated 89 mg/dl; Potassium 4.5 mmol/L (3.5-5.1); Sodium 141 mmol/L (135-145); Total Cholesterol 174 mg/dl (50-199); Total Protein 6.5 g/dl (6.3-8.2); Triglyceride 78 mg/dl (10-149); Very Low Density Lipoprotein 15 mg/dl (0-30); eGFR > 60.00
[2024-11-02 10:04] LABS: Percent Saturation 11 % (20-50); Total Iron Binding Capacity 326 ug/dl (261-462)
[2024-11-02 10:48] LABS: TSH 1.74 uIU/ml (0.47-4.68)
[2024-11-02 10:52] LABS: Ferritin 5.1 ng/ml (17.9-464.0)
[2024-11-03 10:04] LABS: PSA Total 0.7 ng/mL (0.0-4.0)
== END ==
LOC: REG 08:23
PROVIDERS: ATTENDING PHYSICIAN Internal Medicine; FAMILY PHYSICIAN Internal Medicine
DX: Z00.00 Encounter for general adult medical examination without abnormal findings (principal); E78.5 Hyperlipidemia, unspecified; N40.0 Benign prostatic hyperplasia without lower urinary tract symptoms; R53.83 Other fatigue; D64.9 Anemia, unspecified
CPT/HCPCS: 36415; 80053; 80061; 82728; 83540; 83550; 84153; 84154; 84443; 85025

== ENCOUNTER → 2024-12-04 07:28 | Outpatient (REF) | payer OTHER, SELFPAY ==
[2024-12-04 09:04] LABS: % Basophils 1.6 % (0-2); % Eosinophils 5.4 % (0-6); % Lymphocytes 44.3 % (20.5-51.1); % Monocytes 8.2 % (1.7-9.3); % Neutrophils 40.5 % (42.2-75.2); Absolute Basophils 0.1 10^3/uL (0-0.2); Absolute Eosinophils 0.2 10^3/uL (0-0.7); Absolute Lymphocytes 1.4 10^3/uL (1.2-3.4); Absolute Monocytes 0.3 10^3/uL (0.1-0.6); Absolute Neutrophils 1.3 10^3/uL (1.4-6.5); Hemoglobin 12.3 g/dL (13.0-18.0); Mean Corp Hgb Conc. 31.5 g/dL (33.0-37.0); Mean Corpuscular Hgb 26.2 pg (27.0-31.0); Mean Corpuscular Volume 83.2 fL (80.0-94.0); Mean Platelet Volume 9.7 fL (7.4-10.4); Nucleated Red Blood Cells % 0 % (-); Platelet Count 210 10^3/uL (130-400); Red Blood Cell Count 4.69 10^6/uL (4.70-6.10); Red Cell Dist. Width 25.6 % (11.5-14.5); White Blood Cell Count 3.2 10^3/uL (4.8-10.8)
[2024-12-04 09:52] LABS: Iron 64 ug/dl (49-181)
[2024-12-04 10:02] LABS: Percent Saturation 20 % (20-50); Total Iron Binding Capacity 306 ug/dl (261-462)
[2024-12-04 13:10] LABS: Folate 19.3 ng/ml (2.76-20)
== END ==
LOC: REG 07:28
PROVIDERS: ATTENDING PHYSICIAN Internal Medicine; OTHER PHYSICIAN Internal Medicine
DX: D70.9 Neutropenia, unspecified (principal); A69.20 Lyme disease, unspecified; D50.9 Iron deficiency anemia, unspecified
CPT/HCPCS: 36415; 82728; 82746; 83540; 83550; 85025; 86618

== ENCOUNTER → 2025-03-04 06:46 | Outpatient (REF) | payer OTHER, SELFPAY ==
[2025-03-04 07:51] LABS: Hematocrit 40.0 % (39.0-52.0); Hemoglobin 13.1 g/dL (13.0-18.0); Mean Corp Hgb Conc. 32.8 g/dL (33.0-37.0); Mean Corpuscular Volume 91.1 fL (80.0-94.0); Nucleated Red Blood Cells % 0 % (-); Platelet Count 158 10^3/uL (130-400); Red Cell Dist. Width 14.6 % (11.5-14.5)
[2025-03-04 08:26] LABS: Iron 58 ug/dl (49-181)
[2025-03-04 08:45] LABS: Total Iron Binding Capacity 291 ug/dl (261-462)
[2025-03-04 08:54] LABS: Ferritin 20.9 ng/ml (17.9-464.0)
== END ==
LOC: REG 06:46
PROVIDERS: ATTENDING PHYSICIAN Internal Medicine; OTHER PHYSICIAN Internal Medicine; REFERRING PHYSICIAN Internal Medicine Cardiovascular Disease
DX: D50.9 Iron deficiency anemia, unspecified (principal)
CPT/HCPCS: 36415; 82728; 83540; 83550; 85025

== ENCOUNTER → 2025-04-12 13:53 | Outpatient (REF) | payer OTHER, SELFPAY | LOC: RCS 13:53 | PROVIDERS: ATTENDING PHYSICIAN Internal Medicine Cardiovascular Disease; FAMILY PHYSICIAN Internal Medicine; OTHER PHYSICIAN Internal Medicine | DX: I25.10 Atherosclerotic heart disease of native coronary artery without angina pectoris (principal); R01.1 Cardiac murmur, unspecified | CPT/HCPCS: 93306 ==